=== PATIENT | female | born 1985 | race African-American/Black ===

== ENCOUNTER 2021-07-12 16:51 | Emergency (ER) | payer OTHER ==
[~2021-07-12] VITALS: Ht 152.4 cm; Wt 108.9 kg
[2021-07-12] MEDS ORDERED: IBUPROFEN 600 MG TAB PO STA (17:07)
[2021-07-12] MEDS ORDERED: IBUPROFEN 600 MG TAB ONE (17:26)
[2021-07-12] MEDS ORDERED: PROVENTIL HFA6.7 GM INH (17:57)
[2021-07-12] MEDS ORDERED: IBUPROFEN600 MG PO (17:57)
[2021-07-12] MEDS ORDERED: TESSALON PERLE100 MG PO (17:57)
== END 2021-07-12 18:14 | disposition home or self-care (01) ==
LOC: FSED 16:56
DX: U07.1 COVID-19 (principal); R07.89 Other chest pain; R05.9 Cough, unspecified; R00.0 Tachycardia, unspecified
CPT/HCPCS: 71045; 93005; 99283